=== PATIENT | female | born 1955 | race Caucasian/White ===

== ENCOUNTER 2018-01-04 19:54 | Emergency (ER) | payer MEDICAID ==
[~2018-01-04] VITALS: Ht 154.9 cm; Wt 126.4 kg
[~2018-01-04 19:54] MED LIST: ASPI81EC PO; EXEN10PI SUBQ; GLIM2 PO; HYDACE5 PO; LEVSOD50 PO; METF500 PO; OMEP20ER PO; RANI150 PO; TRIHYD5075 PO
[2018-01-04] MEDS ORDERED: CYCL10 PO (20:37)
== END 2018-01-04 20:51 | disposition home or self-care (01) ==
LOC: ER 19:54
DX: M54.5 Low back pain (principal); E11.9 Type 2 diabetes mellitus without complications; E03.9 Hypothyroidism, unspecified; Z88.5 Allergy status to narcotic agent; Z79.899 Other long term (current) drug therapy; Z79.84 Long term (current) use of oral hypoglycemic drugs; Z87.891 Personal history of nicotine dependence; W01.0XXA Fall on same level from slipping, tripping and stumbling without subsequent striking against object, initial encounter
CPT/HCPCS: 96372; 99283; J1885

== ENCOUNTER 2019-07-09 12:26 | Emergency (ER) | payer OTHER ==
[~2019-07-09] VITALS: Ht 154.9 cm; Wt 107.0 kg
[~2019-07-09 12:26] MED LIST changes: +CYCL10 PO; +KETO10 PO
[2019-07-09 13:32] LABS: BASOPHILS PERCENT AUTO 1 % (0-2); EOSINOPHILS ABSOLUTE AUTO 0.12 K/mm3 (0.00-0.68); EOSINOPHILS PERCENT AUTO 1 % (0-6); Hematocrit 37.7 % (33.0-51.0); Hemoglobin 11.8 g/dL (11.5-16.0); IMMATURE GRAN ABSOLUTE AUTO 0.07 K/mm3 (0.00-0.10); IMMATURE GRAN PERCENT AUTO 1 % (0-1); LYMPHOCYTES ABSOLUTE AUTO 1.89 K/mm3 (0.84-5.20); LYMPHOCYTES PERCENT AUTO 16 % (21-46); MONOCYTES ABSOLUTE AUTO 0.66 K/mm3 (0.16-1.47); MONOCYTES PERCENT AUTO 6 % (4-13); Mean Corpuscular HGB 26.2 pg (26.0-34.0); Mean Corpuscular HGB Conc 31.3 g/dL (31.5-36.5); Mean Corpuscular Volume 84 fL (80-100); Mean Platelet Volume 8.9 fL (9.1-12.4); NEUTROPHILS ABSOLUTE AUTO 9.22 K/mm3 (1.96-9.15); NEUTROPHILS PERCENT AUTO 76 % (41-73); Platelet Count 293 K/mm3 (150-400); RDW Coefficient Variation 16.7 % (11.7-14.2); RDW Standard Deviation 50.9 fL (35.1-46.3); Red Blood Cell Count 4.51 M/mm3 (3.80-5.20); White Blood Cell Count 12.06 K/mm3 (4.00-11.30)
[2019-07-09 13:56] LABS: Alanine Aminotransfer (ALT/SGP 13 U/L (12-78); Albumin/Globulin Ratio 0.3 (0.8-1.8); Alk Phos 138 U/L (50-136); Anion Gap 8 mmol/L (6-16); Aspartate Aminotrans (AST/SGOT 112 U/L (12-37); Bilirubin, Total 1.1 mg/dL (0.1-1.0); Blood Urea Nitrogen 12 mg/dL (8-24); Bun/Creatinine Ratio 15.2 (12.0-20.0); CO2, Blood 24 mmol/L (21-32); Calcium, Blood 9.1 mg/dL (8.5-10.1); Chloride, Blood 105 mmol/L (98-108); Creatinine, Blood 0.79 mg/dL (0.40-1.00); Globulin, Blood 6.3 g/dL (2.2-4.0); Glomerular Filtration Rate >60 (60-); Glucose, Blood 280 mg/dL (70-99); Potassium, Blood 4.2 mmol/L (3.5-5.5); Sodium, Blood 137 mmol/L (136-145); Total Protein, Blood 8.3 g/dL (6.4-8.2)
[2019-07-09] MEDS ORDERED: Cephalexin500 MG PO (15:04)
== END 2019-07-09 16:30 | disposition home or self-care (01) ==
LOC: ER 12:26
PROVIDERS: Physician Assistant
DX: L89.312 Pressure ulcer of right buttock, stage 2 (principal); E11.622 Type 2 diabetes mellitus with other skin ulcer; L98.491 Non-pressure chronic ulcer of skin of other sites limited to breakdown of skin; E03.9 Hypothyroidism, unspecified; K21.9 Gastro-esophageal reflux disease without esophagitis; E66.01 Morbid (severe) obesity due to excess calories; Z23 Encounter for immunization; Z88.5 Allergy status to narcotic agent; Z79.899 Other long term (current) drug therapy; Z79.84 Long term (current) use of oral hypoglycemic drugs; Z79.82 Long term (current) use of aspirin; Z87.891 Personal history of nicotine dependence; Z68.41 Body mass index [BMI] 40.0-44.9, adult
CPT/HCPCS: 36415; 80053; 85025; 87070; 87075; 87077; 87147; 87186; 87205; 90471; 90714; 99283-25; A9270-GY

== ENCOUNTER 2019-07-24 14:45 | Inpatient (IN) | payer OTHER ==
[~2019-07-24] VITALS: Ht 154.9 cm; Wt 116.9 kg
[~2019-07-24 14:45] MED LIST changes: -ASPI81EC PO; +Aspirin EC81 MG PO; +Cephalexin500 MG PO
[2019-07-24 15:36] LABS: BASOPHILS ABSOLUTE AUTO 0.09 K/mm3 (0.00-0.23); BASOPHILS PERCENT AUTO 1 % (0-2); EOSINOPHILS ABSOLUTE AUTO 0.25 K/mm3 (0.00-0.68); EOSINOPHILS PERCENT AUTO 3 % (0-6); Hematocrit 36.8 % (33.0-51.0); Hemoglobin 11.6 g/dL (11.5-16.0); IMMATURE GRAN ABSOLUTE AUTO 0.04 K/mm3 (0.00-0.10); IMMATURE GRAN PERCENT AUTO 1 % (0-1); LYMPHOCYTES ABSOLUTE AUTO 1.74 K/mm3 (0.84-5.20); LYMPHOCYTES PERCENT AUTO 22 % (21-46); MONOCYTES ABSOLUTE AUTO 0.42 K/mm3 (0.16-1.47); MONOCYTES PERCENT AUTO 5 % (4-13); Mean Corpuscular HGB 26.4 pg (26.0-34.0); Mean Corpuscular HGB Conc 31.5 g/dL (31.5-36.5); Mean Corpuscular Volume 84 fL (80-100); Mean Platelet Volume 8.8 fL (9.1-12.4); NEUTROPHILS ABSOLUTE AUTO 5.38 K/mm3 (1.96-9.15); NEUTROPHILS PERCENT AUTO 68 % (41-73); Platelet Count 238 K/mm3 (150-400); RDW Coefficient Variation 16.1 % (11.7-14.2); RDW Standard Deviation 48.7 fL (35.1-46.3); White Blood Cell Count 7.92 K/mm3 (4.00-11.30)
[2019-07-24 15:54] LABS: Alanine Aminotransfer (ALT/SGP 11 U/L (12-78); Albumin, Blood 1.9 g/dL (3.4-5.0); Albumin/Globulin Ratio 0.3 (0.8-1.8); Alk Phos 146 U/L (50-136); Anion Gap 5 mmol/L (6-16); Aspartate Aminotrans (AST/SGOT 124 U/L (12-37); Bilirubin, Total 0.8 mg/dL (0.1-1.0); Blood Urea Nitrogen 8 mg/dL (8-24); Bun/Creatinine Ratio 10.8 (12.0-20.0); CO2, Blood 26 mmol/L (21-32); Calcium, Blood 8.7 mg/dL (8.5-10.1); Chloride, Blood 105 mmol/L (98-108); Creatinine, Blood 0.74 mg/dL (0.40-1.00); Globulin, Blood 6.1 g/dL (2.2-4.0); Glomerular Filtration Rate >60 (60-); Glucose, Blood 254 mg/dL (70-99); Potassium, Blood 3.9 mmol/L (3.5-5.5); Sodium, Blood 136 mmol/L (136-145)
[2019-07-24] MEDS ORDERED: METFORMIN HCL500 M2 PO (19:15)
[2019-07-24] MEDS ORDERED: NEURONTIN300 MG PO (19:16)
[2019-07-24] MEDS ORDERED: SYNTHROID100 MCG PO (19:16)
[2019-07-24] MEDS ORDERED: BASAGLAR K100 UNIT/2 (19:17)
[2019-07-24] MEDS ORDERED: DYAZIDE 37.5-21 EACH PO (19:17)
[2019-07-24] MEDS ORDERED: VITAMIN B-121000 MCG PO (19:19)
--- NOTE | 2019-07-25 01:10 | NUR ---
2049 PT ARRIVED TO UNIT VIA STRETCHER. PT IS A/O X4. PT VOMITTED 250 ML OF BROWNISH LIQUID EMESIS WHEN SHE ARRIVED TO UNIT. PT STATES NAUSEA MIGHT BE DUE TO HER PAIN IN L LOWER ABDOMEN AND RATES IT 10. BP 141/112, HR 127. HYDROCODONE 1 TAB GIVEN. PT WAS SHIVERING DUE TO BEING COLD. SHE WAS WRAPPED UP IN SEVERAL BLANKETS. WARM BLANKETS ALSO PROVIDED. REFER TO CHART TO SEE ULCERS ON SKIN. PT'S LEGS ALSO APPEARED MOTTLED. PT WAS INTRODUCTED TO ROOM AND STAFF. 2219 PT RE-ASSESSED AND STATED PAIN HAS EASED UP AND DIDN'T FEEL NAUSEOUS. VITALS RE-TAKEN. BLODD PRESSURE 88/53. PT AYSOMPTOMATIC, A/O X4 AND TALKATIVE DR. FOX NOTIFIED. BOLOUS NS 500 ML ORDERED WELL CONT NS 1L AFTER THAT. STAT LACTIC ACID ALSO ORDERED.
[2019-07-25 02:29] LABS: BASOPHILS ABSOLUTE AUTO 0.05 K/mm3 (0.00-0.23); BASOPHILS PERCENT AUTO 0 % (0-2); EOSINOPHILS ABSOLUTE AUTO 0.02 K/mm3 (0.00-0.68); EOSINOPHILS PERCENT AUTO 0 % (0-6); Hematocrit 30.5 % (33.0-51.0); Hemoglobin 9.4 g/dL (11.5-16.0); IMMATURE GRAN ABSOLUTE AUTO 0.08 K/mm3 (0.00-0.10); IMMATURE GRAN PERCENT AUTO 1 % (0-1); LYMPHOCYTES ABSOLUTE AUTO 0.54 K/mm3 (0.84-5.20); LYMPHOCYTES PERCENT AUTO 4 % (21-46); MONOCYTES ABSOLUTE AUTO 0.56 K/mm3 (0.16-1.47); MONOCYTES PERCENT AUTO 5 % (4-13); Mean Corpuscular HGB 26.3 pg (26.0-34.0); Mean Corpuscular HGB Conc 30.8 g/dL (31.5-36.5); Mean Corpuscular Volume 85 fL (80-100); NEUTROPHILS ABSOLUTE AUTO 11.33 K/mm3 (1.96-9.15); NEUTROPHILS PERCENT AUTO 90 % (41-73); Platelet Count 152 K/mm3 (150-400); RDW Coefficient Variation 16.3 % (11.7-14.2); Red Blood Cell Count 3.57 M/mm3 (3.80-5.20); White Blood Cell Count 12.58 K/mm3 (4.00-11.30)
--- NOTE | 2019-07-25 02:35 | NUR ---
F/U ON COMMERCIAL ACCOUNT OFFICER. PT SITTING UP IN BED A&O, ANSWERING QUESTIONS APPROP. PT HAS RECEIVED 2500ML NS BOLUS. BP RECHECK 77/53 MAP 61 HR 98-114 SPO2 92% ON ROOMAIR. CALL TO DR BERNARDO AND RECEIVED ORDER TO TRANSFER PT TO ICU.
[2019-07-25 02:52] LABS: Bun/Creatinine Ratio 10.3 (12.0-20.0); Calcium, Blood 7.9 mg/dL (8.5-10.1); Creatinine, Blood 1.07 mg/dL (0.40-1.00); Potassium, Blood 3.6 mmol/L (3.5-5.5)
[2019-07-25 02:55] LABS: Thyroid Stimulating Hormone 2.97 uIU/mL (0.360-4.800)
--- NOTE | 2019-07-25 03:21 | NUR ---
EKG DONE, DR BERNARDO NOTIFIED REGARDING AFIB WITH RVR. OBTAINED ORDERS FOR AMIODARONE 150MG BOLUS NOW AND NS AT 100ML/HR FOR ONE LITER
[2019-07-25 03:58] LABS: Source, Urine Catheter
[2019-07-25 04:01] LABS: Appearance, Urine Turbid (Clear); Bilirubin, Urine Neg (Neg); Blood, Urine 5+ (Neg); Color, Urine Yellow (P-Yellow); Glucose Qualitative, Urine 3+ (Neg); Ketones, Urine 1+ (Neg); Leukocyte Esterase, Urine 3+ (Neg); Nitrite, Urine Neg (Neg); Protein, Urine 2+ (Neg); Urobilinogen, Urine NORM (Normal)
[2019-07-25 04:08] LABS: Bacteria Many /hpf; Squamous Epithelial Cells Few /hpf (Few); White Blood Cells, Urine TNTC /hpf (0-5); Yeast/Fungi Urine Mod /hpf
--- NOTE | 2019-07-25 06:51 | NUR ---
PT TRANSFERED FROM MEDICAL FLOOR. ALERT, LOW BLOOD PRESSURE, HEART RATE IN THE 130S, EKG = AFIB W/RVR. AMNIO BOLUS GIVEN. HEART RATE NOW IN 90S IN SINUS. CENTRAL LINE STARTED. PAIN CONTROLLED WITH NORCO. WOUNDS DRESSED.
--- NOTE | 2019-07-25 07:00 | NUR ---
BEDSIDE REPORT FROM LIBIA RN. ASSUMED PT CARE. PT RESTING IN POSITION OF CARE. WAKES WITH STAFF ENTERING .
--- NOTE | 2019-07-25 07:55 | NUR ---
ASSESSMENT CHARTED. PT BREAKFAST PROVIDED.
--- NOTE | 2019-07-25 08:00 | NUR ---
DRESSING TO ACCESS TO LEFT AC CHANGED, DRESSING TO RIGHT AC ACCESS LOOKS CLEAN AND DRY. BOTH PERIPHERAL IVS PATENT AND FLUSH WELL.
--- NOTE | 2019-07-25 08:45 | NUR ---
PT MEDICATED PER EMAR. PT ATE 100% BREAKFAST. FILLED OUT MENU WITH PT. DR HERNANDEZ AT BEDSIDE. ORDERS FOR MED WITH TELE RECEIVED.
--- NOTE | 2019-07-25 09:20 | NUR ---
PT PLACED ON BEDPAN FOR STOOL.
--- NOTE | 2019-07-25 10:39 | NUR ---
PORTABLE IMAGING OF HANDS IN PROCESS. ROCEPHIN STARTED PER EMAR.
[2019-07-25 11:13] LABS: Vancomycin, Trough 26.5 ug/mL (5.0-10.0)
--- NOTE | 2019-07-25 11:30 | NUR ---
BLOOD DRAWN FOR CBG. PT ANIMATED AND UPBEAT. TALKING ON PHONE.
--- NOTE | 2019-07-25 12:43 | NUR ---
REPORT TO AYAKA Gruber RN.
--- NOTE | 2019-07-25 12:44 | NUR ---
ROOM ASSIGNMENT RECEIVED. PCU 12 WHEN READY.
--- NOTE | 2019-07-25 13:19 | NUR ---
TRANSFER TO PCU 12 PT REPORT RECEIVED FROM MILAGROS KABA. PT TRANFERED VIA BED FROM ICU9 TO PCU 12. PT AWAKE AND ALERT. DONALDSON PATENT. DENIED PAIN OR DISCOMFORT. LEFT LOWER PANUS DRESSING INTACT. TALKING ON CELL PHONE WITH SPOUCE. CALL LIGHT WITH IN REACH. BED IN LOW POSITION. PURSE ON NIGHT STAND. CONTINUE POT.
[2019-07-25 16:28] LABS: Vancomycin, Random 22.5 ug/mL
[2019-07-26 04:56] LABS: BASOPHILS ABSOLUTE AUTO 0.09 K/mm3 (0.00-0.23); BASOPHILS PERCENT AUTO 1 % (0-2); EOSINOPHILS ABSOLUTE AUTO 0.42 K/mm3 (0.00-0.68); EOSINOPHILS PERCENT AUTO 3 % (0-6); Hematocrit 27.8 % (33.0-51.0); Hemoglobin 8.6 g/dL (11.5-16.0); IMMATURE GRAN ABSOLUTE AUTO 0.08 K/mm3 (0.00-0.10); IMMATURE GRAN PERCENT AUTO 1 % (0-1); LYMPHOCYTES ABSOLUTE AUTO 2.48 K/mm3 (0.84-5.20); LYMPHOCYTES PERCENT AUTO 18 % (21-46); MONOCYTES ABSOLUTE AUTO 0.72 K/mm3 (0.16-1.47); MONOCYTES PERCENT AUTO 5 % (4-13); Mean Corpuscular HGB 26.5 pg (26.0-34.0); Mean Corpuscular HGB Conc 30.9 g/dL (31.5-36.5); Mean Corpuscular Volume 86 fL (80-100); Mean Platelet Volume 9.5 fL (9.1-12.4); NEUTROPHILS ABSOLUTE AUTO 9.71 K/mm3 (1.96-9.15); NEUTROPHILS PERCENT AUTO 72 % (41-73); Platelet Count 172 K/mm3 (150-400); RDW Coefficient Variation 16.7 % (11.7-14.2); RDW Standard Deviation 52.4 fL (35.1-46.3); Red Blood Cell Count 3.25 M/mm3 (3.80-5.20)
[2019-07-26 05:18] LABS: Alanine Aminotransfer (ALT/SGP 11 U/L (12-78); Albumin, Blood 1.4 g/dL (3.4-5.0); Albumin/Globulin Ratio 0.3 (0.8-1.8); Alk Phos 102 U/L (50-136); Anion Gap 5 mmol/L (6-16); Aspartate Aminotrans (AST/SGOT 99 U/L (12-37); Bilirubin, Total 0.4 mg/dL (0.1-1.0); Blood Urea Nitrogen 16 mg/dL (8-24); Bun/Creatinine Ratio 15.4 (12.0-20.0); CO2, Blood 23 mmol/L (21-32); Calcium, Blood 7.9 mg/dL (8.5-10.1); Chloride, Blood 109 mmol/L (98-108); Creatinine, Blood 1.04 mg/dL (0.40-1.00); Glomerular Filtration Rate 57 (60-); Glucose, Blood 137 mg/dL (70-99); Potassium, Blood 4.1 mmol/L (3.5-5.5); Sodium, Blood 137 mmol/L (136-145); Total Protein, Blood 6.4 g/dL (6.4-8.2); Vancomycin, Random 17.5 ug/mL
--- NOTE | 2019-07-26 06:03 | NUR ---
END OF SHIFT SUMMARY PT REMAINS AXO. VERY TALKATIVE. CONTINUES ON RA. DENIES CP OR DIZZINESS. SBP HAS REMAINED 90'S TO 100'S HAS BEEN WHERE HER PRESSRES HAVE REMAINED POST ICU TRANSFER. FLUIDS CONTINUE TO INFUSE INTO CENTRAL LINE @125 ORDERED. CENTRAL LINE DRESSING CHANGED DUE TO COMING OFF. PT REMAINS IN SR. DONALDSON REMAINS IN PLACE. HAVE BEEN IN ROOM OFF AND ON TO MEET PT NEEDS. PT HAS SLEPTN T/O SHIFT. WILL CONTINUE TO MONITOR UNTIL WSHIFT CHANGE.
[2019-07-26 11:38] LABS: Percent Saturation 12.3 % (15.0-50.0)
--- NOTE | 2019-07-26 16:29 | NUR ---
PCU TRANSFER- PT ARRIVED TO ROOM 313 VIA BED FROM 1610. PT A/OX3, PT REPORTS 7/10 PAIN TO LEFT PANNUS FROM DRESSING CHANGE PRIOR TO TRANSFER, PRN NORCO GIVEN. LS DIMINISHED, ON RA. HRR. DONALDSON PATENT AND DRAINING CLEAR YELLOW URINE. DRESSING TO LEFT PANNUS C/D/I. SEE PHOTOS IN CHART FOR WOUNDS. NS RUNNING AT 125 ML/HR TO RIJ. PT ORIENTED TO ROOM AND CALL SYSTEM. ENCOURAGED PT TO CHANGE POSITIONS IN BED AND TO GET UP FOR DINNER, PT REPORTS SHE WILL THINK ABOUT IT. CALL LIGHT IN REACH.
--- NOTE | 2019-07-26 20:30 | NUR ---
MEPILEXES CHANGED TO BUTTOCKS AND INNER THIGH D/T STOOL CONTAMINATION. ATTENDS CHANGED. TYLER AND SKIN CARE PERFORMED. NYSTATIN APPLIED.
[2019-07-27 05:36] LABS: BASOPHILS ABSOLUTE AUTO 0.11 K/mm3 (0.00-0.23); BASOPHILS PERCENT AUTO 1 % (0-2); EOSINOPHILS ABSOLUTE AUTO 0.29 K/mm3 (0.00-0.68); EOSINOPHILS PERCENT AUTO 3 % (0-6); Hemoglobin 8.9 g/dL (11.5-16.0); IMMATURE GRAN ABSOLUTE AUTO 0.09 K/mm3 (0.00-0.10); IMMATURE GRAN PERCENT AUTO 1 % (0-1); LYMPHOCYTES ABSOLUTE AUTO 1.74 K/mm3 (0.84-5.20); LYMPHOCYTES PERCENT AUTO 21 % (21-46); MONOCYTES ABSOLUTE AUTO 0.51 K/mm3 (0.16-1.47); MONOCYTES PERCENT AUTO 6 % (4-13); Mean Corpuscular HGB 26.4 pg (26.0-34.0); Mean Corpuscular HGB Conc 30.7 g/dL (31.5-36.5); Mean Corpuscular Volume 86 fL (80-100); Mean Platelet Volume 9.1 fL (9.1-12.4); NEUTROPHILS ABSOLUTE AUTO 5.68 K/mm3 (1.96-9.15); NEUTROPHILS PERCENT AUTO 67 % (41-73); Platelet Count 181 K/mm3 (150-400); RDW Coefficient Variation 16.5 % (11.7-14.2); Red Blood Cell Count 3.37 M/mm3 (3.80-5.20); White Blood Cell Count 8.42 K/mm3 (4.00-11.30)
[2019-07-27 05:52] LABS: Alanine Aminotransfer (ALT/SGP 17 U/L (12-78); Albumin, Blood 1.5 g/dL (3.4-5.0); Albumin/Globulin Ratio 0.3 (0.8-1.8); Alk Phos 126 U/L (50-136); Anion Gap 5 mmol/L (6-16); Aspartate Aminotrans (AST/SGOT 130 U/L (12-37); Bilirubin, Total 0.3 mg/dL (0.1-1.0); Blood Urea Nitrogen 13 mg/dL (8-24); CO2, Blood 24 mmol/L (21-32); Calcium, Blood 8.2 mg/dL (8.5-10.1); Chloride, Blood 108 mmol/L (98-108); Creatinine, Blood 0.87 mg/dL (0.40-1.00); Globulin, Blood 5.3 g/dL (2.2-4.0); Glomerular Filtration Rate >60 (60-); Glucose, Blood 169 mg/dL (70-99); Potassium, Blood 4.4 mmol/L (3.5-5.5); Sodium, Blood 137 mmol/L (136-145); Total Protein, Blood 6.8 g/dL (6.4-8.2)
--- NOTE | 2019-07-27 06:44 | NUR ---
SUMMARY: A/OX4, SPECIFIES NEEDS AND COOPERATIVE W/CARE. SHE'S BEEN BEDREST AND HAS SBD TO BUTTOCKS AND TYLER AREA SO TURN SCHEDULE WAS MAINTAINED. DONALDSON PATENT/DRAINING. MEPILEX TO BUTTOCKS AND R.INNER THIGH SKIN TEAR WERE CHANGED FOR STOOL CONTAMINATION. BOWEL MEDS REFUSED D/T LARGE SOFT BM. DX TO L.PANNUS AND TORSO REMAINED C/D/I. NS INFUSES AT 125 ML/HR AND ABX RECIEVED. NYSTATIN APPLIED TO SKIN FOLDS. NO ACUTE CHANGES, VSS/AFEBRILE. WCTM/REPORT TO DAY RN.
[2019-07-27] MEDS ORDERED: FERSU300 PO (10:08)
[2019-07-27] MEDS ORDERED: BACTRIM DS TAB1 EACH PO (10:09)
--- NOTE | 2019-07-27 11:06 | NUR ---
F/U MADE WITH PCP FOR 08/03. PT REFUSING HOME HEALTH DUE TO COPAY AMOUNT. SPOKE WITH [facility] CLIN[facility] FOR FOLLOW UP AND THEY REPORT THEY ARE ABOUT 1 MONTH OUT AND THEY WILL CONTACT PT. RX FAXED TO [facility]. MENDOZA BERMAN. SHINGLE BOLT CUTTER FREDDY IN REMOVING CENTRAL LINE. PHOTOS TAKEN OF ALL WOUNDS AND NEW DRESSINGS APPLIED. EXTRA DRESSING SUPPLIES PACKED UP FOR PT TO TAKE HOME FOR TO ASSIST WITH DRESSING CHANGES PER PT. SPOKE WITH PT REGARDING HOME HEALTH SERVICES WELL NEED TO FOLLOW UP WITH URGENT CARE IF NEEDED FOR WOUND CARE UNTIL CAN BE SEEN BY [facility]OUND CLINIC.
--- NOTE | 2019-07-27 12:36 | NUR ---
DISCHARGE INSTRUCTIONS REVIEWED WITH PT AND SPOUSE. NOTIFIED THEM OF [facility]OUND [facility] BEING OUT A MONTH AND AT THIS TIME THEY STATED THEY ARE WILLING TO TRY HOME HEALTH AND PAY THE COPAY. DR NEVILLE NOTIFIED AND WILL PLACE HH ORDERS. AMELIA WITH IRENE SANTOS DOWN TALKING WITH PT AND SPOUSE AT THIS TIME.
--- NOTE | 2019-07-27 13:37 | NUR ---
PT DISCHARGED HOME WITH SPOUSE AT 1335.
[2019-07-27 13:54] LABS: Stool Occult Blood Guaiac 1 Neg (Neg)
== END 2019-07-27 13:26 | disposition home or self-care (01) | DRG 602 ==
LOC: ER 14:45 → MEDS 18:59 → ICUW 18:59 → MEDS 20:18 → ICUW 07-25 02:39 → PCU 07-25 13:13 → MEDS 07-26 16:03
PROVIDERS: Internal Medicine; Pharmacist; Physician Assistant; Specialist; ADMIT Internal Medicine
PROC: 02HV33Z Insertion of Infusion Device into Superior Vena Cava, Percutaneous Approach (ICD-10-PCS; principal; 2019-07-25)
DX: L03.311 Cellulitis of abdominal wall (principal); R65.21 Severe sepsis with septic shock; A41.9 Sepsis, unspecified organism; Z68.41 Body mass index [BMI] 40.0-44.9, adult; E66.01 Morbid (severe) obesity due to excess calories; Z87.891 Personal history of nicotine dependence; K74.60 Unspecified cirrhosis of liver; Z79.82 Long term (current) use of aspirin; D50.9 Iron deficiency anemia, unspecified
CPT/HCPCS: 36415; 36556; 71045; 73120; 74177; 80048; 80053; 80202; 81001; 82272; 82607; 82728; 82746; 82947; 83036; 83540; 83550; 83605; 84443; 85025; 85651; 86430; 87077; 87086; 87106; 87186; 93005; 93010; 96365-59; 96367; 96375; 99285-25; A9270-GY; C1751; J0282; J0696; J1650; J2405; J2543; J3370; J7030; J7040; J7050; Q9967

== ENCOUNTER 2019-09-08 10:30 | Inpatient (IN) | payer OTHER ==
[~2019-09-08] VITALS: Ht 154.9 cm; Wt 128.5 kg
[~2019-09-08 10:30] MED LIST changes: +BACTRIM DS TAB1 EACH PO; +BASAGLAR K100 UNIT/2; +DYAZIDE 37.5-21 EACH PO; +FERSU300 PO; +METFORMIN HCL500 M2 PO; +NEURONTIN300 MG PO; +SYNTHROID100 MCG PO; +VITAMIN B-121000 MCG PO
[2019-09-08 10:59] LABS: BASOPHILS ABSOLUTE AUTO 0.04 K/mm3 (0.00-0.23); BASOPHILS PERCENT AUTO 0 % (0-2); EOSINOPHILS ABSOLUTE AUTO 0.17 K/mm3 (0.00-0.68); EOSINOPHILS PERCENT AUTO 1 % (0-6); Hematocrit 28.5 % (33.0-51.0); Hemoglobin 8.4 g/dL (11.5-16.0); IMMATURE GRAN ABSOLUTE AUTO 0.36 K/mm3 (0.00-0.10); IMMATURE GRAN PERCENT AUTO 2 % (0-1); LYMPHOCYTES PERCENT AUTO 9 % (21-46); MONOCYTES PERCENT AUTO 5 % (4-13); Mean Corpuscular HGB 25.9 pg (26.0-34.0); Mean Corpuscular HGB Conc 29.5 g/dL (31.5-36.5); Mean Corpuscular Volume 88 fL (80-100); Mean Platelet Volume 8.6 fL (9.1-12.4); NEUTROPHILS ABSOLUTE AUTO 14.31 K/mm3 (1.96-9.15); NEUTROPHILS PERCENT AUTO 83 % (41-73); NRBC ABSOLUTE 0.02 K/mm3 (0.00-0.02); NRBC Auto 0.1 /100 WBC (0.0-0.2); Platelet Count 241 K/mm3 (150-400); RDW Coefficient Variation 18.3 % (11.7-14.2); RDW Standard Deviation 59.2 fL (35.1-46.3); Red Blood Cell Count 3.24 M/mm3 (3.80-5.20); White Blood Cell Count 17.28 K/mm3 (4.00-11.30)
[2019-09-08 11:11] LABS: Alanine Aminotransfer (ALT/SGP 11 U/L (12-78); Albumin/Globulin Ratio 0.3 (0.8-1.8); Alk Phos 124 U/L (50-136); Anion Gap 9 mmol/L (6-16); Aspartate Aminotrans (AST/SGOT 65 U/L (12-37); Bilirubin, Total 0.8 mg/dL (0.1-1.0); Blood Urea Nitrogen 55 mg/dL (8-24); Bun/Creatinine Ratio 17.6 (12.0-20.0); CO2, Blood 19 mmol/L (21-32); Calcium, Blood 8.2 mg/dL (8.5-10.1); Chloride, Blood 109 mmol/L (98-108); Creatinine, Blood 3.13 mg/dL (0.40-1.00); Globulin, Blood 5.9 g/dL (2.2-4.0); Glomerular Filtration Rate 16 (60-); Glucose, Blood 148 mg/dL (70-99); Potassium, Blood 5.2 mmol/L (3.5-5.5); Sodium, Blood 137 mmol/L (136-145); Total Protein, Blood 7.9 g/dL (6.4-8.2); Troponin I <0.015 ng/mL (0.000-0.040)
[2019-09-08] MEDS ORDERED: DYAZIDE 37.5-21 EACH PO (12:20)
[2019-09-08 12:35] LABS: International Normalized Ratio 1.5; Prothrombin Time Results 15.7 Sec (9.7-11.5)
[2019-09-08 12:44] LABS: Phosphorus, Blood 5.8 mg/dL (2.5-4.9)
[2019-09-08 13:10] LABS: Base Excess Venous -12.3 mmol/L; Bicarbonate Venous 15.2 mmol/L (24.0-30.0); PCO2 Venous 42.2 mmHg (38-42); pH Blood Venous 7.19 (7.34-7.37)
[2019-09-08] MEDS ORDERED: OMEP20ER PO (16:57)
[2019-09-08 19:42] LABS: Source, Urine Clean Catch
[2019-09-08 19:46] LABS: PCO2 Arterial 39 mmHg (35-45); PO2 Arterial 116 mmHg (80-100)
[2019-09-08 19:49] LABS: Bilirubin, Urine Neg (Neg); Blood, Urine 5+ (Neg); Glucose Qualitative, Urine Neg (Neg); Ketones, Urine 1+ (Neg); Leukocyte Esterase, Urine 3+ (Neg); Nitrite, Urine Neg (Neg); Protein, Urine 3+ (Neg); Specific Gravity, Urine 1.015 (1.003-1.022); Urobilinogen, Urine NORM (Normal); pH, Urine 6.5 (5.0-8.0)
[2019-09-08 20:05] LABS: Appearance, Urine Cloudy (Clear); Color, Urine Yellow (P-Yellow)
[2019-09-08 20:06] LABS: White Blood Cells, Urine TNTC /hpf (0-5)
[2019-09-08 20:07] LABS: Amorphous Mod (0-Heavy); Bacteria Many /hpf; Squamous Epithelial Cells Few /hpf (Few)
[2019-09-08 20:54] LABS: Albumin/Globulin Ratio 0.3 (0.8-1.8); Bilirubin, Total 0.9 mg/dL (0.1-1.0); Bun/Creatinine Ratio 19.3 (12.0-20.0); Calcium, Blood 8.1 mg/dL (8.5-10.1); Creatinine, Blood 2.8 mg/dL (0.40-1.00); Globulin, Blood 6.1 g/dL (2.2-4.0); Total Protein, Blood 8.1 g/dL (6.4-8.2)
[2019-09-09 04:08] LABS: BASOPHILS ABSOLUTE AUTO 0.07 K/mm3 (0.00-0.23); BASOPHILS PERCENT AUTO 0 % (0-2); EOSINOPHILS ABSOLUTE AUTO 0.24 K/mm3 (0.00-0.68); EOSINOPHILS PERCENT AUTO 1 % (0-6); Hematocrit 31.6 % (33.0-51.0); Hemoglobin 8.8 g/dL (11.5-16.0); IMMATURE GRAN PERCENT AUTO 2 % (0-1); LYMPHOCYTES PERCENT AUTO 7 % (21-46); MONOCYTES ABSOLUTE AUTO 1.84 K/mm3 (0.16-1.47); MONOCYTES PERCENT AUTO 8 % (4-13); Mean Corpuscular HGB 25.4 pg (26.0-34.0); Mean Corpuscular HGB Conc 27.8 g/dL (31.5-36.5); Mean Platelet Volume 8.6 fL (9.1-12.4); NEUTROPHILS ABSOLUTE AUTO 18.96 K/mm3 (1.96-9.15); NEUTROPHILS PERCENT AUTO 82 % (41-73); NRBC ABSOLUTE 0.04 K/mm3 (0.00-0.02); NRBC Auto 0.2 /100 WBC (0.0-0.2); Platelet Count 304 K/mm3 (150-400); RDW Coefficient Variation 18.4 % (11.7-14.2); RDW Standard Deviation 60.1 fL (35.1-46.3); Red Blood Cell Count 3.47 M/mm3 (3.80-5.20); White Blood Cell Count 23.21 K/mm3 (4.00-11.30)
[2019-09-09 04:17] LABS: Mean Corpuscular Volume 91 fL (80-100)
[2019-09-09 04:28] LABS: Magnesium, Blood 1.8 mg/dL (1.6-2.4)
[2019-09-09 04:29] LABS: Alanine Aminotransfer (ALT/SGP 18 U/L (12-78); Albumin, Blood 2.1 g/dL (3.4-5.0); Albumin/Globulin Ratio 0.3 (0.8-1.8); Alk Phos 124 U/L (50-136); Anion Gap 10 mmol/L (6-16); Aspartate Aminotrans (AST/SGOT 71 U/L (12-37); Blood Urea Nitrogen 55 mg/dL (8-24); Bun/Creatinine Ratio 19.2 (12.0-20.0); CO2, Blood 18 mmol/L (21-32); Chloride, Blood 109 mmol/L (98-108); Creatinine, Blood 2.86 mg/dL (0.40-1.00); Globulin, Blood 6.2 g/dL (2.2-4.0); Glomerular Filtration Rate 18 (60-); Glucose, Blood 178 mg/dL (70-99); Potassium, Blood 5.3 mmol/L (3.5-5.5); Sodium, Blood 137 mmol/L (136-145); Total Protein, Blood 8.3 g/dL (6.4-8.2)
[2019-09-09 06:03] LABS: PCO2 Arterial 40.3 mmHg (35-45); PO2 Arterial 114 mmHg (80-100); pH Blood Arterial 7.26 (7.35-7.45)
[2019-09-09 15:49] LABS: Adenovirus Not Detected (NOT DETECT); Bordetella pertussis Not Detected (NOT DETECT); Chlamydophila pneumoniae Not Detected (NOT DETECT); Coronavirus 229E Not Detected (NOT DETECT); Coronavirus HKU1 Not Detected (NOT DETECT); Coronavirus NL63 Not Detected (NOT DETECT); Coronavirus OC43 Not Detected (NOT DETECT); Human Metapneumovirus Not Detected (NOT DETECT); Human Rhinovirus/Enterovirus Not Detected (NOT DETECT); Influenza A/2009-H1 Not Detected (NOT DETECT); Influenza A/H1 Not Detected (NOT DETECT); Influenza A/H3 Not Detected (NOT DETECT); Influenza B Not Detected (NOT DETECT); Mycoplasma pneumoniae Not Detected (NOT DETECT); Parainfluenza Virus 1 Not Detected (NOT DETECT); Parainfluenza Virus 2 Not Detected (NOT DETECT); Parainfluenza Virus 3 Not Detected (NOT DETECT); Parainfluenza Virus 4 Not Detected (NOT DETECT); Respiratory Syncytial Virus Not Detected (NOT DETECT)
[2019-09-10 03:35] LABS: Base Excess Venous -6.1 mmol/L; Bicarbonate Venous 19.3 mmol/L (24.0-30.0); PCO2 Venous 50.5 mmHg (38-42); PO2 Venous 44.4 mmHg (38-42); pH Blood Venous 7.24 (7.34-7.37)
[2019-09-10 03:45] LABS: BASOPHILS ABSOLUTE AUTO 0.04 K/mm3 (0.00-0.23); BASOPHILS PERCENT AUTO 0 % (0-2); EOSINOPHILS ABSOLUTE AUTO 0.41 K/mm3 (0.00-0.68); EOSINOPHILS PERCENT AUTO 3 % (0-6); Hematocrit 28.4 % (33.0-51.0); Hemoglobin 8.1 g/dL (11.5-16.0); IMMATURE GRAN ABSOLUTE AUTO 0.23 K/mm3 (0.00-0.10); IMMATURE GRAN PERCENT AUTO 1 % (0-1); LYMPHOCYTES ABSOLUTE AUTO 1.29 K/mm3 (0.84-5.20); LYMPHOCYTES PERCENT AUTO 8 % (21-46); MONOCYTES ABSOLUTE AUTO 0.95 K/mm3 (0.16-1.47); MONOCYTES PERCENT AUTO 6 % (4-13); Mean Corpuscular HGB 25.6 pg (26.0-34.0); Mean Corpuscular HGB Conc 28.5 g/dL (31.5-36.5); Mean Corpuscular Volume 90 fL (80-100); Mean Platelet Volume 8.4 fL (9.1-12.4); NEUTROPHILS ABSOLUTE AUTO 13.07 K/mm3 (1.96-9.15); NEUTROPHILS PERCENT AUTO 82 % (41-73); NRBC ABSOLUTE 0.03 K/mm3 (0.00-0.02); NRBC Auto 0.2 /100 WBC (0.0-0.2); Platelet Count 251 K/mm3 (150-400); RDW Coefficient Variation 18.5 % (11.7-14.2); RDW Standard Deviation 59.8 fL (35.1-46.3); Red Blood Cell Count 3.16 M/mm3 (3.80-5.20); White Blood Cell Count 15.99 K/mm3 (4.00-11.30)
[2019-09-10 04:08] LABS: Alanine Aminotransfer (ALT/SGP 13 U/L (12-78); Albumin, Blood 1.9 g/dL (3.4-5.0); Albumin/Globulin Ratio 0.3 (0.8-1.8); Alk Phos 107 U/L (50-136); Anion Gap 8 mmol/L (6-16); Aspartate Aminotrans (AST/SGOT 59 U/L (12-37); Bilirubin, Total 0.8 mg/dL (0.1-1.0); Blood Urea Nitrogen 57 mg/dL (8-24); CO2, Blood 22 mmol/L (21-32); Calcium, Blood 8.1 mg/dL (8.5-10.1); Chloride, Blood 107 mmol/L (98-108); Creatinine, Blood 2.59 mg/dL (0.40-1.00); Globulin, Blood 5.8 g/dL (2.2-4.0); Glomerular Filtration Rate 20 (60-); Glucose, Blood 224 mg/dL (70-99); Magnesium, Blood 1.8 mg/dL (1.6-2.4); Phosphorus, Blood 5.5 mg/dL (2.5-4.9); Potassium, Blood 4.6 mmol/L (3.5-5.5); Sodium, Blood 137 mmol/L (136-145); Total Protein, Blood 7.7 g/dL (6.4-8.2); Vancomycin, Random 23.4 ug/mL
[2019-09-10 09:32] LABS: PCO2 Arterial 46.3 mmHg (35-45); PO2 Arterial 175 mmHg (80-100)
[2019-09-10 09:33] LABS: pH Blood Arterial 7.29 (7.35-7.45)
[2019-09-10 17:49] LABS: Hematocrit 27.4 % (33.0-51.0)
[2019-09-11 03:54] LABS: BASOPHILS ABSOLUTE AUTO 0.06 K/mm3 (0.00-0.23); BASOPHILS PERCENT AUTO 1 % (0-2); EOSINOPHILS ABSOLUTE AUTO 0.54 K/mm3 (0.00-0.68); EOSINOPHILS PERCENT AUTO 4 % (0-6); Hematocrit 32.6 % (33.0-51.0); Hemoglobin 9.6 g/dL (11.5-16.0); IMMATURE GRAN ABSOLUTE AUTO 0.15 K/mm3 (0.00-0.10); IMMATURE GRAN PERCENT AUTO 1 % (0-1); LYMPHOCYTES ABSOLUTE AUTO 1.24 K/mm3 (0.84-5.20); LYMPHOCYTES PERCENT AUTO 10 % (21-46); MONOCYTES ABSOLUTE AUTO 1.06 K/mm3 (0.16-1.47); MONOCYTES PERCENT AUTO 9 % (4-13); Mean Corpuscular HGB 26.4 pg (26.0-34.0); Mean Corpuscular HGB Conc 29.4 g/dL (31.5-36.5); Mean Corpuscular Volume 90 fL (80-100); Mean Platelet Volume 8.3 fL (9.1-12.4); NEUTROPHILS ABSOLUTE AUTO 9.41 K/mm3 (1.96-9.15); NEUTROPHILS PERCENT AUTO 76 % (41-73); NRBC ABSOLUTE 0.03 K/mm3 (0.00-0.02); NRBC Auto 0.2 /100 WBC (0.0-0.2); Platelet Count 197 K/mm3 (150-400); RDW Coefficient Variation 18.7 % (11.7-14.2); RDW Standard Deviation 59.7 fL (35.1-46.3); Red Blood Cell Count 3.64 M/mm3 (3.80-5.20); White Blood Cell Count 12.46 K/mm3 (4.00-11.30)
[2019-09-11 04:13] LABS: Albumin, Blood 1.8 g/dL (3.4-5.0); Anion Gap 6 mmol/L (6-16); Blood Urea Nitrogen 45 mg/dL (8-24); Bun/Creatinine Ratio 25.6 (12.0-20.0); CO2, Blood 24 mmol/L (21-32); Chloride, Blood 106 mmol/L (98-108); Creatinine, Blood 1.76 mg/dL (0.40-1.00); Glomerular Filtration Rate 31 (60-); Glucose, Blood 244 mg/dL (70-99); Magnesium, Blood 1.8 mg/dL (1.6-2.4); Phosphorus, Blood 3.5 mg/dL (2.5-4.9); Potassium, Blood 4.1 mmol/L (3.5-5.5); Sodium, Blood 136 mmol/L (136-145); Vancomycin, Random 18.5 ug/mL
[2019-09-11 05:34] LABS: PCO2 Arterial 39.5 mmHg (35-45); pH Blood Arterial 7.39 (7.35-7.45)
[2019-09-12 03:46] LABS: Hemoglobin 8.1 g/dL (11.5-16.0)
[2019-09-12 04:09] LABS: Magnesium, Blood 1.7 mg/dL (1.6-2.4)
[2019-09-12 04:14] LABS: Albumin, Blood 1.9 g/dL (3.4-5.0); Anion Gap 6 mmol/L (6-16); Blood Urea Nitrogen 39 mg/dL (8-24); Bun/Creatinine Ratio 29.1 (12.0-20.0); CO2, Blood 24 mmol/L (21-32); Calcium, Blood 8.3 mg/dL (8.5-10.1); Chloride, Blood 107 mmol/L (98-108); Creatinine, Blood 1.34 mg/dL (0.40-1.00); Glomerular Filtration Rate 42 (60-); Glucose, Blood 231 mg/dL (70-99); Phosphorus, Blood 2.8 mg/dL (2.5-4.9); Potassium, Blood 3.9 mmol/L (3.5-5.5); Sodium, Blood 137 mmol/L (136-145); Vancomycin, Random 13.4 ug/mL
[2019-09-13 04:18] LABS: BASOPHILS ABSOLUTE AUTO 0.03 K/mm3 (0.00-0.23); BASOPHILS PERCENT AUTO 0 % (0-2); EOSINOPHILS ABSOLUTE AUTO 0.43 K/mm3 (0.00-0.68); EOSINOPHILS PERCENT AUTO 3 % (0-6); Hematocrit 25.3 % (33.0-51.0); Hemoglobin 7.4 g/dL (11.5-16.0); IMMATURE GRAN ABSOLUTE AUTO 0.29 K/mm3 (0.00-0.10); IMMATURE GRAN PERCENT AUTO 2 % (0-1); LYMPHOCYTES ABSOLUTE AUTO 1.35 K/mm3 (0.84-5.20); LYMPHOCYTES PERCENT AUTO 8 % (21-46); MONOCYTES ABSOLUTE AUTO 0.95 K/mm3 (0.16-1.47); MONOCYTES PERCENT AUTO 6 % (4-13); Mean Corpuscular HGB Conc 29.2 g/dL (31.5-36.5); Mean Corpuscular Volume 89 fL (80-100); Mean Platelet Volume 8.6 fL (9.1-12.4); NEUTROPHILS ABSOLUTE AUTO 13.18 K/mm3 (1.96-9.15); NEUTROPHILS PERCENT AUTO 81 % (41-73); NRBC ABSOLUTE 0.03 K/mm3 (0.00-0.02); NRBC Auto 0.2 /100 WBC (0.0-0.2); Platelet Count 188 K/mm3 (150-400); RDW Coefficient Variation 19.1 % (11.7-14.2); RDW Standard Deviation 59.6 fL (35.1-46.3); Red Blood Cell Count 2.85 M/mm3 (3.80-5.20); White Blood Cell Count 16.23 K/mm3 (4.00-11.30)
[2019-09-13 04:32] LABS: Albumin, Blood 3.2 g/dL (3.4-5.0); Anion Gap 7 mmol/L (6-16); Blood Urea Nitrogen 39 mg/dL (8-24); Bun/Creatinine Ratio 27.5 (12.0-20.0); CO2, Blood 23 mmol/L (21-32); Calcium, Blood 8.8 mg/dL (8.5-10.1); Chloride, Blood 104 mmol/L (98-108); Creatinine, Blood 1.42 mg/dL (0.40-1.00); Glomerular Filtration Rate 40 (60-); Glucose, Blood 219 mg/dL (70-99); Magnesium, Blood 1.6 mg/dL (1.6-2.4); Potassium, Blood 3.8 mmol/L (3.5-5.5); Sodium, Blood 134 mmol/L (136-145)
[2019-09-13 14:21] LABS: Vancomycin, Trough 23.4 ug/mL (5.0-10.0)
[2019-09-14 04:37] LABS: BASOPHILS ABSOLUTE AUTO 0.03 K/mm3 (0.00-0.23); BASOPHILS PERCENT AUTO 0 % (0-2); EOSINOPHILS ABSOLUTE AUTO 0.13 K/mm3 (0.00-0.68); EOSINOPHILS PERCENT AUTO 1 % (0-6); Hematocrit 24.7 % (33.0-51.0); Hemoglobin 7.3 g/dL (11.5-16.0); IMMATURE GRAN ABSOLUTE AUTO 0.13 K/mm3 (0.00-0.10); IMMATURE GRAN PERCENT AUTO 1 % (0-1); LYMPHOCYTES ABSOLUTE AUTO 1.23 K/mm3 (0.84-5.20); LYMPHOCYTES PERCENT AUTO 8 % (21-46); MONOCYTES ABSOLUTE AUTO 0.85 K/mm3 (0.16-1.47); MONOCYTES PERCENT AUTO 6 % (4-13); Mean Corpuscular HGB 26.2 pg (26.0-34.0); Mean Corpuscular HGB Conc 29.6 g/dL (31.5-36.5); Mean Corpuscular Volume 89 fL (80-100); Mean Platelet Volume 9.2 fL (9.1-12.4); NEUTROPHILS ABSOLUTE AUTO 12.46 K/mm3 (1.96-9.15); NEUTROPHILS PERCENT AUTO 84 % (41-73); NRBC ABSOLUTE 0.02 K/mm3 (0.00-0.02); NRBC Auto 0.1 /100 WBC (0.0-0.2); Platelet Count 154 K/mm3 (150-400); RDW Coefficient Variation 19.3 % (11.7-14.2); RDW Standard Deviation 58.6 fL (35.1-46.3); Red Blood Cell Count 2.79 M/mm3 (3.80-5.20); White Blood Cell Count 14.83 K/mm3 (4.00-11.30)
[2019-09-14 04:56] LABS: Albumin, Blood 3.8 g/dL (3.4-5.0); Anion Gap 9 mmol/L (6-16); Blood Urea Nitrogen 37 mg/dL (8-24); CO2, Blood 23 mmol/L (21-32); Calcium, Blood 8.7 mg/dL (8.5-10.1); Chloride, Blood 104 mmol/L (98-108); Creatinine, Blood 1.37 mg/dL (0.40-1.00); Glomerular Filtration Rate 41 (60-); Glucose, Blood 206 mg/dL (70-99); Magnesium, Blood 1.7 mg/dL (1.6-2.4); Phosphorus, Blood 2.7 mg/dL (2.5-4.9); Potassium, Blood 3.3 mmol/L (3.5-5.5); Sodium, Blood 136 mmol/L (136-145)
[2019-09-14 12:22] LABS: Percent Saturation 12.2 % (15.0-50.0)
[2019-09-15 03:50] LABS: BASOPHILS ABSOLUTE AUTO 0.02 K/mm3 (0.00-0.23); BASOPHILS PERCENT AUTO 0 % (0-2); EOSINOPHILS ABSOLUTE AUTO 0.12 K/mm3 (0.00-0.68); EOSINOPHILS PERCENT AUTO 1 % (0-6); Hematocrit 23.7 % (33.0-51.0); Hemoglobin 6.9 g/dL (11.5-16.0); IMMATURE GRAN ABSOLUTE AUTO 0.16 K/mm3 (0.00-0.10); IMMATURE GRAN PERCENT AUTO 1 % (0-1); LYMPHOCYTES PERCENT AUTO 8 % (21-46); MONOCYTES ABSOLUTE AUTO 1.06 K/mm3 (0.16-1.47); MONOCYTES PERCENT AUTO 6 % (4-13); Mean Corpuscular HGB 25.9 pg (26.0-34.0); Mean Corpuscular HGB Conc 29.1 g/dL (31.5-36.5); Mean Corpuscular Volume 89 fL (80-100); Mean Platelet Volume 8.9 fL (9.1-12.4); NEUTROPHILS ABSOLUTE AUTO 14.61 K/mm3 (1.96-9.15); NEUTROPHILS PERCENT AUTO 85 % (41-73); NRBC ABSOLUTE 0.04 K/mm3 (0.00-0.02); NRBC Auto 0.2 /100 WBC (0.0-0.2); Platelet Count 149 K/mm3 (150-400); RDW Coefficient Variation 19.8 % (11.7-14.2); RDW Standard Deviation 61.1 fL (35.1-46.3); Red Blood Cell Count 2.66 M/mm3 (3.80-5.20); White Blood Cell Count 17.27 K/mm3 (4.00-11.30)
[2019-09-15 04:14] LABS: Albumin, Blood 4.4 g/dL (3.4-5.0); Anion Gap 9 mmol/L (6-16); Blood Urea Nitrogen 40 mg/dL (8-24); CO2, Blood 24 mmol/L (21-32); Calcium, Blood 9.2 mg/dL (8.5-10.1); Chloride, Blood 105 mmol/L (98-108); Creatinine, Blood 1.43 mg/dL (0.40-1.00); Glomerular Filtration Rate 39 (60-); Glucose, Blood 181 mg/dL (70-99); Magnesium, Blood 1.5 mg/dL (1.6-2.4); Phosphorus, Blood 2.8 mg/dL (2.5-4.9); Potassium, Blood 3.3 mmol/L (3.5-5.5); Sodium, Blood 138 mmol/L (136-145); Vancomycin, Random 17.2 ug/mL
[2019-09-16 03:54] LABS: BASOPHILS ABSOLUTE AUTO 0.05 K/mm3 (0.00-0.23); BASOPHILS PERCENT AUTO 0 % (0-2); EOSINOPHILS ABSOLUTE AUTO 0.23 K/mm3 (0.00-0.68); EOSINOPHILS PERCENT AUTO 1 % (0-6); Hematocrit 29.1 % (33.0-51.0); Hemoglobin 8.3 g/dL (11.5-16.0); IMMATURE GRAN ABSOLUTE AUTO 0.54 K/mm3 (0.00-0.10); IMMATURE GRAN PERCENT AUTO 3 % (0-1); LYMPHOCYTES ABSOLUTE AUTO 2.12 K/mm3 (0.84-5.20); LYMPHOCYTES PERCENT AUTO 10 % (21-46); MONOCYTES ABSOLUTE AUTO 1.41 K/mm3 (0.16-1.47); MONOCYTES PERCENT AUTO 7 % (4-13); Mean Corpuscular HGB 26.1 pg (26.0-34.0); Mean Corpuscular HGB Conc 28.5 g/dL (31.5-36.5); Mean Corpuscular Volume 92 fL (80-100); Mean Platelet Volume 9.4 fL (9.1-12.4); NEUTROPHILS ABSOLUTE AUTO 17.25 K/mm3 (1.96-9.15); NEUTROPHILS PERCENT AUTO 80 % (41-73); NRBC ABSOLUTE 0.08 K/mm3 (0.00-0.02); NRBC Auto 0.4 /100 WBC (0.0-0.2); Platelet Count 183 K/mm3 (150-400); RDW Coefficient Variation 19.5 % (11.7-14.2); RDW Standard Deviation 61.3 fL (35.1-46.3); Red Blood Cell Count 3.18 M/mm3 (3.80-5.20)
[2019-09-16 04:19] LABS: Magnesium, Blood 1.8 mg/dL (1.6-2.4)
[2019-09-16 04:23] LABS: Anion Gap 9 mmol/L (6-16); Blood Urea Nitrogen 44 mg/dL (8-24); Bun/Creatinine Ratio 23.5 (12.0-20.0); CO2, Blood 23 mmol/L (21-32); Calcium, Blood 9.3 mg/dL (8.5-10.1); Chloride, Blood 105 mmol/L (98-108); Creatinine, Blood 1.87 mg/dL (0.40-1.00); Glomerular Filtration Rate 29 (60-); Glucose, Blood 169 mg/dL (70-99); Phosphorus, Blood 3.6 mg/dL (2.5-4.9); Potassium, Blood 3.6 mmol/L (3.5-5.5); Sodium, Blood 137 mmol/L (136-145); Vancomycin, Random 14.6 ug/mL
[2019-09-16 10:39] LABS: Base Excess Venous -6.3 mmol/L; PCO2 Venous 63.2 mmHg (38-42); PO2 Venous 50.2 mmHg (38-42); pH Blood Venous 7.16 (7.34-7.37)
[2019-09-16 14:14] LABS: Base Excess Venous -6.9 mmol/L; Bicarbonate Venous 18.7 mmol/L (24.0-30.0); PO2 Venous 51.4 mmHg (38-42)
[2019-09-16 20:55] LABS: Base Excess Venous -6.9 mmol/L; Bicarbonate Venous 18.7 mmol/L (24.0-30.0); PCO2 Venous 54.5 mmHg (38-42); PO2 Venous 52.9 mmHg (38-42)
[2019-09-17 03:44] LABS: BASOPHILS ABSOLUTE AUTO 0.04 K/mm3 (0.00-0.23); BASOPHILS PERCENT AUTO 0 % (0-2); EOSINOPHILS PERCENT AUTO 2 % (0-6); Hematocrit 30.1 % (33.0-51.0); Hemoglobin 8.9 g/dL (11.5-16.0); IMMATURE GRAN ABSOLUTE AUTO 0.23 K/mm3 (0.00-0.10); IMMATURE GRAN PERCENT AUTO 1 % (0-1); LYMPHOCYTES ABSOLUTE AUTO 1.35 K/mm3 (0.84-5.20); LYMPHOCYTES PERCENT AUTO 8 % (21-46); MONOCYTES ABSOLUTE AUTO 0.94 K/mm3 (0.16-1.47); MONOCYTES PERCENT AUTO 6 % (4-13); Mean Corpuscular HGB 26.6 pg (26.0-34.0); Mean Corpuscular HGB Conc 29.6 g/dL (31.5-36.5); Mean Corpuscular Volume 90 fL (80-100); Mean Platelet Volume 8.9 fL (9.1-12.4); NEUTROPHILS ABSOLUTE AUTO 13.68 K/mm3 (1.96-9.15); NEUTROPHILS PERCENT AUTO 82 % (41-73); NRBC ABSOLUTE 0.08 K/mm3 (0.00-0.02); NRBC Auto 0.5 /100 WBC (0.0-0.2); Platelet Count 171 K/mm3 (150-400); RDW Coefficient Variation 19.7 % (11.7-14.2); RDW Standard Deviation 61.1 fL (35.1-46.3); Red Blood Cell Count 3.35 M/mm3 (3.80-5.20); White Blood Cell Count 16.64 K/mm3 (4.00-11.30)
[2019-09-17 03:48] LABS: Base Excess Venous -5.8 mmol/L; Bicarbonate Venous 19.6 mmol/L (24.0-30.0); PCO2 Venous 43.7 mmHg (38-42); PO2 Venous 47.6 mmHg (38-42); pH Blood Venous 7.29 (7.34-7.37)
[2019-09-17 04:06] LABS: Albumin, Blood 3.4 g/dL (3.4-5.0); Anion Gap 10 mmol/L (6-16); Blood Urea Nitrogen 50 mg/dL (8-24); CO2, Blood 22 mmol/L (21-32); Chloride, Blood 108 mmol/L (98-108); Glomerular Filtration Rate 27 (60-); Glucose, Blood 165 mg/dL (70-99); Magnesium, Blood 1.8 mg/dL (1.6-2.4); Phosphorus, Blood 2.9 mg/dL (2.5-4.9); Potassium, Blood 3.5 mmol/L (3.5-5.5); Sodium, Blood 140 mmol/L (136-145); Vancomycin, Random 24.9 ug/mL
[2019-09-17 20:24] LABS: Base Excess Venous -5.8 mmol/L; Bicarbonate Venous 19.5 mmol/L (24.0-30.0); PCO2 Venous 43.4 mmHg (38-42); PO2 Venous 42.3 mmHg (38-42); pH Blood Venous 7.29 (7.34-7.37)
[2019-09-18 03:34] LABS: Bicarbonate Venous 20.1 mmol/L (24.0-30.0); PCO2 Venous 40.4 mmHg (38-42); PO2 Venous 37.2 mmHg (38-42); pH Blood Venous 7.32 (7.34-7.37)
[2019-09-18 03:50] LABS: BASOPHILS ABSOLUTE AUTO 0.04 K/mm3 (0.00-0.23); BASOPHILS PERCENT AUTO 0 % (0-2); EOSINOPHILS ABSOLUTE AUTO 0.56 K/mm3 (0.00-0.68); EOSINOPHILS PERCENT AUTO 3 % (0-6); Hematocrit 30.1 % (33.0-51.0); IMMATURE GRAN ABSOLUTE AUTO 0.21 K/mm3 (0.00-0.10); IMMATURE GRAN PERCENT AUTO 1 % (0-1); LYMPHOCYTES PERCENT AUTO 10 % (21-46); MONOCYTES ABSOLUTE AUTO 1.21 K/mm3 (0.16-1.47); MONOCYTES PERCENT AUTO 6 % (4-13); Mean Corpuscular HGB 26.2 pg (26.0-34.0); Mean Corpuscular HGB Conc 29.9 g/dL (31.5-36.5); Mean Corpuscular Volume 88 fL (80-100); Mean Platelet Volume 9.1 fL (9.1-12.4); NEUTROPHILS ABSOLUTE AUTO 16.23 K/mm3 (1.96-9.15); NEUTROPHILS PERCENT AUTO 80 % (41-73); NRBC ABSOLUTE 0.09 K/mm3 (0.00-0.02); NRBC Auto 0.4 /100 WBC (0.0-0.2); Platelet Count 218 K/mm3 (150-400); RDW Coefficient Variation 20.3 % (11.7-14.2); RDW Standard Deviation 59.7 fL (35.1-46.3); Red Blood Cell Count 3.44 M/mm3 (3.80-5.20); White Blood Cell Count 20.25 K/mm3 (4.00-11.30)
[2019-09-18 04:16] LABS: Anion Gap 10 mmol/L (6-16); Blood Urea Nitrogen 54 mg/dL (8-24); Bun/Creatinine Ratio 24.4 (12.0-20.0); CO2, Blood 22 mmol/L (21-32); Calcium, Blood 8.8 mg/dL (8.5-10.1); Chloride, Blood 107 mmol/L (98-108); Creatinine, Blood 2.21 mg/dL (0.40-1.00); Glomerular Filtration Rate 24 (60-); Glucose, Blood 211 mg/dL (70-99); Magnesium, Blood 1.9 mg/dL (1.6-2.4); Phosphorus, Blood 2.6 mg/dL (2.5-4.9); Potassium, Blood 3.4 mmol/L (3.5-5.5); Sodium, Blood 139 mmol/L (136-145)
[2019-09-18 08:24] LABS: Vancomycin, Random 23.5 ug/mL
[2019-09-18 12:55] LABS: Stool Occult Blood Guaiac 1 Neg (Neg)
[2019-09-19 03:55] LABS: Base Excess Venous -3.8 mmol/L; Bicarbonate Venous 21.5 mmol/L (24.0-30.0); PCO2 Venous 34.9 mmHg (38-42); PO2 Venous 60.9 mmHg (38-42); pH Blood Venous 7.39 (7.34-7.37)
[2019-09-19 04:15] LABS: BASOPHILS ABSOLUTE AUTO 0.05 K/mm3 (0.00-0.23); BASOPHILS PERCENT AUTO 0 % (0-2); EOSINOPHILS ABSOLUTE AUTO 0.57 K/mm3 (0.00-0.68); EOSINOPHILS PERCENT AUTO 4 % (0-6); Hematocrit 28.4 % (33.0-51.0); Hemoglobin 8.6 g/dL (11.5-16.0); IMMATURE GRAN ABSOLUTE AUTO 0.16 K/mm3 (0.00-0.10); IMMATURE GRAN PERCENT AUTO 1 % (0-1); LYMPHOCYTES ABSOLUTE AUTO 1.67 K/mm3 (0.84-5.20); LYMPHOCYTES PERCENT AUTO 13 % (21-46); MONOCYTES ABSOLUTE AUTO 0.78 K/mm3 (0.16-1.47); MONOCYTES PERCENT AUTO 6 % (4-13); Mean Corpuscular HGB 26.3 pg (26.0-34.0); Mean Corpuscular HGB Conc 30.3 g/dL (31.5-36.5); Mean Corpuscular Volume 87 fL (80-100); Mean Platelet Volume 9.2 fL (9.1-12.4); NEUTROPHILS ABSOLUTE AUTO 9.64 K/mm3 (1.96-9.15); NEUTROPHILS PERCENT AUTO 75 % (41-73); NRBC ABSOLUTE 0.05 K/mm3 (0.00-0.02); NRBC Auto 0.4 /100 WBC (0.0-0.2); Platelet Count 159 K/mm3 (150-400); RDW Standard Deviation 58.3 fL (35.1-46.3); Red Blood Cell Count 3.27 M/mm3 (3.80-5.20); White Blood Cell Count 12.87 K/mm3 (4.00-11.30)
[2019-09-19 05:00] LABS: Albumin, Blood 2.8 g/dL (3.4-5.0); Anion Gap 10 mmol/L (6-16); Blood Urea Nitrogen 60 mg/dL (8-24); Bun/Creatinine Ratio 27.6 (12.0-20.0); CO2, Blood 21 mmol/L (21-32); Calcium, Blood 8.7 mg/dL (8.5-10.1); Chloride, Blood 105 mmol/L (98-108); Creatinine, Blood 2.17 mg/dL (0.40-1.00); Glomerular Filtration Rate 24 (60-); Glucose, Blood 254 mg/dL (70-99); Magnesium, Blood 1.9 mg/dL (1.6-2.4); Phosphorus, Blood 2.4 mg/dL (2.5-4.9); Sodium, Blood 136 mmol/L (136-145)
[2019-09-19 08:29] LABS: Vancomycin, Random 19.1 ug/mL
[2019-09-19 20:59] LABS: Magnesium, Blood 1.8 mg/dL (1.6-2.4); Potassium, Blood 3.5 mmol/L (3.5-5.5)
[2019-09-20 04:37] LABS: BASOPHILS ABSOLUTE AUTO 0.06 K/mm3 (0.00-0.23); BASOPHILS PERCENT AUTO 1 % (0-2); EOSINOPHILS ABSOLUTE AUTO 0.39 K/mm3 (0.00-0.68); EOSINOPHILS PERCENT AUTO 4 % (0-6); Hematocrit 27.8 % (33.0-51.0); Hemoglobin 8.5 g/dL (11.5-16.0); IMMATURE GRAN ABSOLUTE AUTO 0.11 K/mm3 (0.00-0.10); IMMATURE GRAN PERCENT AUTO 1 % (0-1); LYMPHOCYTES ABSOLUTE AUTO 1.14 K/mm3 (0.84-5.20); LYMPHOCYTES PERCENT AUTO 10 % (21-46); MONOCYTES ABSOLUTE AUTO 0.55 K/mm3 (0.16-1.47); MONOCYTES PERCENT AUTO 5 % (4-13); Mean Corpuscular HGB 26.2 pg (26.0-34.0); Mean Corpuscular HGB Conc 30.6 g/dL (31.5-36.5); Mean Corpuscular Volume 86 fL (80-100); Mean Platelet Volume 8.9 fL (9.1-12.4); NEUTROPHILS PERCENT AUTO 80 % (41-73); NRBC ABSOLUTE 0.03 K/mm3 (0.00-0.02); NRBC Auto 0.3 /100 WBC (0.0-0.2); Platelet Count 133 K/mm3 (150-400); RDW Coefficient Variation 20.8 % (11.7-14.2); RDW Standard Deviation 56.7 fL (35.1-46.3); Red Blood Cell Count 3.24 M/mm3 (3.80-5.20); White Blood Cell Count 10.95 K/mm3 (4.00-11.30)
[2019-09-20 04:55] LABS: Albumin, Blood 2.6 g/dL (3.4-5.0); Anion Gap 8 mmol/L (6-16); Blood Urea Nitrogen 62 mg/dL (8-24); Bun/Creatinine Ratio 33.2 (12.0-20.0); CO2, Blood 25 mmol/L (21-32); Calcium, Blood 8.6 mg/dL (8.5-10.1); Chloride, Blood 104 mmol/L (98-108); Creatinine, Blood 1.87 mg/dL (0.40-1.00); Glomerular Filtration Rate 29 (60-); Glucose, Blood 300 mg/dL (70-99); Magnesium, Blood 1.8 mg/dL (1.6-2.4); Phosphorus, Blood 2.3 mg/dL (2.5-4.9); Potassium, Blood 3.1 mmol/L (3.5-5.5); Sodium, Blood 137 mmol/L (136-145); Vancomycin, Random 16.9 ug/mL
[2019-09-21 04:11] LABS: BASOPHILS ABSOLUTE AUTO 0.07 K/mm3 (0.00-0.23); BASOPHILS PERCENT AUTO 1 % (0-2); EOSINOPHILS ABSOLUTE AUTO 0.47 K/mm3 (0.00-0.68); EOSINOPHILS PERCENT AUTO 4 % (0-6); Hematocrit 27.3 % (33.0-51.0); Hemoglobin 8.3 g/dL (11.5-16.0); IMMATURE GRAN ABSOLUTE AUTO 0.13 K/mm3 (0.00-0.10); IMMATURE GRAN PERCENT AUTO 1 % (0-1); LYMPHOCYTES ABSOLUTE AUTO 1.13 K/mm3 (0.84-5.20); LYMPHOCYTES PERCENT AUTO 9 % (21-46); MONOCYTES ABSOLUTE AUTO 0.65 K/mm3 (0.16-1.47); MONOCYTES PERCENT AUTO 5 % (4-13); Mean Corpuscular HGB 26.8 pg (26.0-34.0); Mean Corpuscular HGB Conc 30.4 g/dL (31.5-36.5); Mean Corpuscular Volume 88 fL (80-100); Mean Platelet Volume 9.4 fL (9.1-12.4); NEUTROPHILS ABSOLUTE AUTO 9.79 K/mm3 (1.96-9.15); NEUTROPHILS PERCENT AUTO 80 % (41-73); NRBC ABSOLUTE 0.02 K/mm3 (0.00-0.02); NRBC Auto 0.2 /100 WBC (0.0-0.2); Platelet Count 136 K/mm3 (150-400); RDW Coefficient Variation 22.1 % (11.7-14.2); RDW Standard Deviation 59.5 fL (35.1-46.3); White Blood Cell Count 12.24 K/mm3 (4.00-11.30)
[2019-09-21 04:30] LABS: Albumin, Blood 2.6 g/dL (3.4-5.0); Anion Gap 7 mmol/L (6-16); Blood Urea Nitrogen 62 mg/dL (8-24); Bun/Creatinine Ratio 37.1 (12.0-20.0); CO2, Blood 28 mmol/L (21-32); Calcium, Blood 8.5 mg/dL (8.5-10.1); Chloride, Blood 103 mmol/L (98-108); Creatinine, Blood 1.67 mg/dL (0.40-1.00); Glomerular Filtration Rate 33 (60-); Glucose, Blood 282 mg/dL (70-99); Magnesium, Blood 1.6 mg/dL (1.6-2.4); Phosphorus, Blood 2.5 mg/dL (2.5-4.9); Sodium, Blood 138 mmol/L (136-145)
[2019-09-21] MEDS ORDERED: ACET325 PO (15:12)
[2019-09-21] MEDS ORDERED: MIDO5 PO (15:13)
[2019-09-21] MEDS ORDERED: LORA.5 PO (15:14)
[2019-09-21] MEDS ORDERED: ONDA4ODT SL (15:15)
[2019-09-21] MEDS ORDERED: MORP20L PO (15:22)
== END 2019-09-21 16:15 | disposition hospice, home (50) | DRG 853 ==
LOC: ER 10:30 → ICUE 14:14 → ICUW 14:14 → ICUE 15:21
PROVIDERS: Emergency Medicine; Family Medicine; Hospitalist; Internal Medicine; Internal Medicine Critical Care Medicine; Internal Medicine Nephrology; Internal Medicine Pulmonary Disease; Nurse Practitioner Acute Care; Pharmacist; Surgery; ADMIT Internal Medicine
PROC: 5A09357 Assistance with Respiratory Ventilation, Less than 24 Consecutive Hours, Continuous Positive Airway Pressure (ICD-10-PCS; principal; 2019-09-08)
PROC: 0JB80ZZ Excision of Abdomen Subcutaneous Tissue and Fascia, Open Approach (ICD-10-PCS; 2019-09-09)
PROC: 3E033XZ Introduction of Vasopressor into Peripheral Vein, Percutaneous Approach (ICD-10-PCS; 2019-09-10)
PROC: 02HV33Z Insertion of Infusion Device into Superior Vena Cava, Percutaneous Approach (ICD-10-PCS; 2019-09-10)
DX: A41.01 Sepsis due to Methicillin susceptible Staphylococcus aureus (principal); J96.01 Acute respiratory failure with hypoxia; R65.21 Severe sepsis with septic shock; N17.0 Acute kidney failure with tubular necrosis; G92 Toxic encephalopathy; J96.02 Acute respiratory failure with hypercapnia; Z68.42 Body mass index [BMI] 45.0-49.9, adult; E87.2 Acidosis; E87.1 Hypo-osmolality and hyponatremia; N39.0 Urinary tract infection, site not specified; Z79.84 Long term (current) use of oral hypoglycemic drugs; Z79.82 Long term (current) use of aspirin; E03.9 Hypothyroidism, unspecified; K21.9 Gastro-esophageal reflux disease without esophagitis; Z87.891 Personal history of nicotine dependence; E66.01 Morbid (severe) obesity due to excess calories; M79.3 Panniculitis, unspecified; E87.5 Hyperkalemia; E88.09 Other disorders of plasma-protein metabolism, not elsewhere classified; I35.0 Nonrheumatic aortic (valve) stenosis; E11.65 Type 2 diabetes mellitus with hyperglycemia; E86.1 Hypovolemia; I48.91 Unspecified atrial fibrillation; Z66 Do not resuscitate
CPT/HCPCS: 0099U; 36415; 36430; 36556; 36600; 51703; 70450; 71045; 71046; 74176; 80053; 80069; 80202; 81001; 82140; 82272; 82530; 82533; 82550; 82607; 82728; 82746; 82803; 82947; 83540; 83550; 83605; 83735; 83880; 84100; 84132; 84443; 84484; 84550; 85014; 85018; 85025; 85610; 86850; 86900; 86901; 86923; 87040; 87071; 87075; 87076; 87077; 87081; 87086; 87185; 87186; 87205; 88305; 88312; 90686; 92610; 93005; 93010; 93306; 94660; 96365; 96366; 96367; 97110; 97162; 97166; 97530; 99285-25; A9270; A9270-GY; C1751; C1894; C9113; J0282; J0456; J0692; J0696; J0881; J1450; J1644; J1650; J1815; J2250; J2370; J2405; J2550; J2704; J2765; J3010; J3370; J3475; J3480; J7030; J7040; J7050; J7060; J7070; J7131; P9016; P9046; U0002